=== PATIENT | female | born 1990 | race American Indian/Alaskan Native ===

== ENCOUNTER 2017-05-14 14:55 | Emergency (ER) | payer MEDICAID ==
[2017-05-14 14:55] VITALS: BMI 21.9
[2017-05-14 15:03] VITALS: O2SAT 100
--- NOTE | 2017-05-14 15:19 | C.PDOC ---
History Of Present Illness 27 y/o female comes in for detox of percocet, last use waas 2 weeks ago. Patient notes that her last percocet use was 2 weeks ago and was trying to come off the drug, but started to not feel well and began having muscle cramps. So to block the pain and symptoms she took MDMA today. Patient admits to smoking marijuana, but does not drink. Denies SI, HI, or somatic complaints. Time Seen by Provider: 05/14/17 15:01 Chief Complaint (Nursing): Substance Abuse History Per: Patient History/Exam Limitations: no limitations Onset/Duration Of Symptoms: Days Current Symptoms Are (Timing): Still Present Suicide/Self Injury Attempted (Context): None Modifying Factor(s): Narcotics (MDMD and percocet) Associated Symptoms: denies: Suicidal Thoughts, Suicidal Plan Involuntary Hold By: None Recent travel outside of the [place]: No Additional History Per: Patient Past Medical History Reviewed: Historical Data, Nursing Documentation, Vital Signs Vital Signs: Last Vital Signs Temp 97.9 F 05/14/17 14:58 Pulse 104 H 05/14/17 14:58 Resp 20 05/14/17 14:58 BP 137/90 05/14/17 14:58 Pulse Ox 100 05/14/17 15:27 - [facility] Procedures APPLICATION OF SPLINT (10/08/13) DELIVERY OF PRODUCTS OF CONCEPTION, EXTERNAL APPROACH (06/28/15) MONITORING OF POC, CARDIAC RATE, BIAS MACHINE OPERATOR HELPER APPROACH (06/28/15) REPAIR FEMALE PERINEUM, EXTERNAL APPROACH (06/28/15) Family History: States: Unknown Family Hx - Social History Hx Alcohol Use: Yes Hx Substance Use: Yes - Immunization History Hx Tetanus Toxoid Vaccination: Yes Hx Influenza Vaccination: No Hx Pneumococcal Vaccination: No Review Of Systems Except As Marked, All Systems Reviewed And Found Negative. Constitutional: Positive for: Other (MDMA and narcotic abuse). Negative for: Fever, Chills Cardiovascular: Negative for: Chest Pain Respiratory: Negative for: Cough, Shortness of Breath Gastrointestinal: Negative for: Abdominal Pain Skin: Negative for: Rash Psych: Negative for: Psychosis, Suicidal ideation, Other (HI) Physical Exam - Physical Exam Appears: Non-toxic, No Acute Distress Skin: Warm, Dry Head: Atraumatic, Normacephalic Eye(s): bilateral: Normal Inspection, PERRL, EOMI Oral Mucosa: Moist Chest: Symmetrical Cardiovascular: Rhythm Regular, No Murmur Respiratory: Normal Breath Sounds, No Rales, No Rhonchi, No Wheezing Gastrointestinal/Abdominal: Soft, No Tenderness Neurological/Psych: Oriented x3 ED Course And Treatment O2 Sat by Pulse Oximetry: 100 (RA) Pulse Ox Interpretation: Normal Progress Note: Patient was seen in the Ed by spring floor service worker. 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 Disposition - Disposition Disposition: HOME/ ROUTINE Disposition Time: 16:42 Condition: STABLE Instructions: Polysubstance Abuse (ED) Forms: [employer] (Czech) - Clinical Impression Clinical Impression: Polysubstance abuse - Scribe Statement The provider has reviewed the documentation as recorded by the Scribe Tanya [email or web address] All medical record entries made by the Scribe were at my direction and personally dictated by me. I have reviewed the chart and agree that the record accurately reflects my personal performance of the history, physical exam, medical decision making, and the department course for this patient. I have also personally directed, reviewed, and agree with the discharge instructions and disposition.
[2017-05-14 17:09] VITALS: BP 147/95; PULSE 93; RESP 18; TEMP 98.1
== END 2017-05-14 17:14 | disposition home or self-care (01) ==
LOC: C.ER 14:55
DX: F19.10 Other psychoactive substance abuse, uncomplicated (principal)

== ENCOUNTER 2017-12-26 13:49 | Emergency (ER) | payer MEDICAID ==
[2017-12-26 13:50] VITALS: BMI 21.9
[2017-12-26 14:03] VITALS: BP 115/85; PULSE 83; RESP 16; TEMP 98; O2SAT 97
--- NOTE | 2017-12-26 14:25 | C.PDOC ---
History Of Present Illness Patient presents to ED c/o productive cough, runny nose, sore throat and pleuritic chest pain since for 2-3 days. (+) sick contact, daughter recently had cold symptoms. Patient denies fever, SOB, nausea/vomiting/diarrhea, ear pain, rash. Time Seen by Provider: 12/26/17 14:01 Chief Complaint (Nursing): Cough, Cold, Congestion History Per: Patient History/Exam Limitations: no limitations Onset/Duration Of Symptoms: Days (2-3 days) Current Symptoms Are (Timing): Still Present Associated Symptoms: Sore Throat, Cough, Sputum, Nasal Congestion Severity: Mild Past Medical History Reviewed: Historical Data, Nursing Documentation, Vital Signs Vital Signs: Last Vital Signs Temp 98 F 12/26/17 13:59 Pulse 83 12/26/17 13:59 Resp 16 12/26/17 13:59 BP 115/85 12/26/17 13:59 Pulse Ox 97 12/26/17 14:25 - Medical History PMH: No Chronic Diseases - [facility] Procedures APPLICATION OF SPLINT (10/08/13) DELIVERY OF PRODUCTS OF CONCEPTION, EXTERNAL APPROACH (06/28/15) MONITORING OF POC, CARDIAC RATE, TRANSFER PUMPER APPROACH (06/28/15) REPAIR FEMALE PERINEUM, EXTERNAL APPROACH (06/28/15) Family History: States: No Known Family Hx - Social History Hx Alcohol Use: Yes Hx Substance Use: Yes - Immunization History Hx Tetanus Toxoid Vaccination: Yes Hx Influenza Vaccination: No Hx Pneumococcal Vaccination: No Review Of Systems Constitutional: Negative for: Fever, Chills ENT: Positive for: Nose Congestion, Throat Pain. Negative for: Ear Pain Respiratory: Positive for: Cough, Pleuritic Pain Gastrointestinal: Negative for: Nausea, Vomiting, Abdominal Pain, Diarrhea Skin: Negative for: Rash Physical Exam - Physical Exam Appears: Well, Non-toxic, No Acute Distress, Other (coughing occasionally ) Eye(s): bilateral: Normal Inspection Nose: Normal Oral Mucosa: Moist Throat: Normal, No Erythema, No Exudate Cardiovascular: Rhythm Regular Respiratory: Normal Breath Sounds, No Rales, No Rhonchi, No Wheezing Extremity: No Pedal Edema Neurological/Psych: Oriented x3 ED Course And Treatment O2 Sat by Pulse Oximetry: 97 (RA) Pulse Ox Interpretation: Normal Progress Note: CXR ordered and reviewed - negative for infiltrates. Patient given PO Tessalon and Tylenol in ED. She was reassured symptoms are likely viral, and that treatment is supportive. Rxs for Tessalon, Sudafed, Tylenol given. Patient instructed to follow up with PMD/clinic in 1-2 days, and understands she should return to ED if symptoms worsen. Reevaluation Time: 14:30 Reassessment Condition: Improved Disposition Counseled Patient/Family Regarding: Diagnosis, Need For Followup, Rx Given - Disposition Referrals: Casie Ortiz MD [Medical Doctor] - Disposition: HOME/ ROUTINE Disposition Time: 14:30 Condition: STABLE Additional Instructions: FOLLOW UP WITH YOUR DOCTOR IN 1-2 DAYS USE MEDICATIONS NEEDED DRINK PLENTY OF FLUIDS AND GET REST RETURN TO EMERGENCY ROOM IF SYMPTOMS WORSEN Prescriptions: Acetaminophen [Tylenol 325mg tab] 650 mg PO Q6 PRN #30 tab PRN Reason: pain/fever Benzonatate [Tessalon Perles] 100 mg PO BID PRN #15 sgl PRN Reason: Cough Pseudoephedrine [Sudafed] 60 mg PO Q6 PRN #12 tab PRN Reason: Nasal Congestion Instructions: Viral Upper Respiratory Infection, Adult (DC) Forms: [employer] (Arabic) Print Language: URDU - POA Present On Arrival: None - Clinical Impression Clinical Impression: Upper respiratory infection, Viral disease
--- NOTE | 2017-12-26 14:32 | RAD ---
Chest x-ray two views History: Productive cough. Comparison: None available. Findings: No focal infiltrate or effusion. Mild right hilar prominence. Heart size within normal limits. Bibasilar breast and nipple shadows. Impression: No focal infiltrate or effusion.
== END 2017-12-26 14:29 | disposition home or self-care (01) ==
LOC: C.ER 13:49
DX: J06.9 Acute upper respiratory infection, unspecified (principal); B34.9 Viral infection, unspecified